=== PATIENT | female | born 1995 | race Caucasian/White ===

== ENCOUNTER 2024-10-15 19:09 | Emergency (ER) | payer SELFPAY ==
[2024-10-15 20:02] VITALS: RESP 16; TEMP 97.9
[2024-10-15] MEDS ORDERED: Erythromycin 1 GM ONE (21:54)
[2024-10-15] MEDS: Erythromycin 1 GM OP STA (21:55)
--- NOTE | 2024-10-15 21:55 | ERPHSYRPT ---
- History of Present Illness Time Seen by Provider: 10/15/24 21:00 Source: patient Exam Limitations: no limitations Patient Subjective Stated Complaint: both eyes red and swollen which has been going on since jul, but tonight the left eye started draining Triage Nursing Assessment: Pt ambulated into Er without diff. Pt c/o bilat eye itching and burning and swelling. This has been going on since Jul, 2024. Pt's bilat eyelids are red, swollen and the left eye has dried yellow drainage noted to eyelid. Redness also noted underneath bilat eyes. Pt came in due to the left eye draining this evening. Pt has been to her eye dr, to urgent care and 2 different quick clinics. Pt is scheduled to see an biomedical field service engineer in 2 weeks. Physician History: Patient is a 29-year-old female presents to our ED for evaluation of of recurrent intermittent periorbital itching and burning sensation. Symptoms have been intermittent since July 2024. Patient states her eyelids and the periorbital soft tissues become swollen irritated. She occasionally experiences matting of her left eye. No involvement of the globe. No redness no blurred vision no eye pain. Patient's symptom is around the involved eye. Patient has seen several providers including an eye doctor her family doctor and an outpatient quick care clinic. Patient has been treated with intramuscular steroids and oral antibiotics. Symptoms improved transiently however recur. Patient is here today because of matting of her left eye mostly the lateral aspect. Patient is currently scheduled to see an biomedical field service engineer in 2 weeks. Symptoms are mild to moderate in intensity. No specific worsening or improving factors. Patient has discontinued her make-up. She no longer wears contacts. Patient keeps her face clean with mild soap. Patient is otherwise asymptomatic. She has no other manifestations local or systemic other than her current periorbital itching and burning sensation. Portions of this note were created with voice recognition technology. There may be grammatical, spelling, punctuation or sound alike errors Timing/Duration: today Severity: moderate Modifying Factors: Improves With: nothing Associated Symptoms: denies symptoms Allergies/Adverse Reactions: fentanyl Adverse Reaction (Intermediate, Verified 10/15/24 20:12) Hives Home Medications: Ascorbic Acid/Ascorbate Sodium [Vitamin C 500 mg Tablet Chew] 1 tab PO DAILY 10/15/24 [History] Ferrous Sulfate [Iron] 1 tab PO DAILY 10/15/24 [History] Hx Tetanus, Diphtheria Vaccination/Date Given: Yes Hx Influenza Vaccination/Date Given: Yes Hx Pneumococcal Vaccination/Date Given: No Travel Risk - International Travel Have you traveled outside of the country in past 3 weeks: No - Emerging Infectious Disease Are you exhibiting symptoms associated with any current EIDs: No - Review of Systems Constitutional: No Symptoms, No Fever, No Chills Eyes: No Symptoms Ears, Nose, & Throat: No Symptoms Respiratory: No Symptoms, No Cough, No Dyspnea Cardiac: No Symptoms, No Chest Pain, No Edema, No Syncope Abdominal/Gastrointestinal: No Symptoms, No Abdominal Pain, No Nausea, No V omiting, No Diarrhea Genitourinary Symptoms: No Symptoms, No Dysuria Musculoskeletal: No Symptoms, No Back Pain, No Neck Pain Skin: No Symptoms, No Rash Neurological: No Symptoms, No Dizziness, No Focal Weakness, No Sensory Changes Psychological: No Symptoms Endocrine: No Symptoms Hematologic/Lymphatic: No Symptoms Immunological/Allergic: No Symptoms All Other Systems: Reviewed and Negative - Past Medical History Pertinent Past Medical History: Yes Psycho-Social History: Anxiety, Bipolar, Depression Other Medical History: anemia - Past Surgical History Past Surgical History: Yes Gastrointestinal: Appendectomy Female Surgical History: Tubal Ligation Other Surgical History: cyst removal from thumb - Female History Hx Last Menstrual Period: . Hx Now: No - Social History Smoking Status: Never smoker Exposure to second hand smoke: No Drug Use: none - Social Determinants of Health Will the patient participate in the screening: Yes Do you worry about a steady place to live?: No Do you have any problems with any of the following?: No known problems In the past 12 months,have you had to go without utilities?: No Transportation Issues: No Has anyone in your support network made you feel unsafe?: No Have you or anyone in your house had to go without enough: No - Nursing Vital Signs Nursing Vital Signs: Initial Vital Signs Temperature 97.9 F 10/15/24 20:01 Pulse Rate 82 10/15/24 20:01 Respiratory Rate 16 10/15/24 20:01 Blood Pressure 123/87 10/15/24 20:01 O2 Sat by Pulse Oximetry 98 10/15/24 20:01 Pain Scale Pain Intensity 0 - Physical Exam General Appearance: no apparent distress, alert Eye Exam: PERRL/EOMI, eyes nml inspection Ears, Nose, Throat Exam: normal ENT inspection, pharynx normal, moist mucous membranes, other (Bilateral periorbital redness and irritation/dermatitis. Mild bilateral blepharitis no conjunctivitis. No chemosis left lateral periorbital area is developing a superimposed skin infection/impetigo. No orbital involvement.) Neck Exam: normal inspection, non-tender, supple, full range of motion Respiratory Exam: normal breath sounds, lungs clear, airway intact, No respiratory distress Cardiovascular Exam: regular rate/rhythm, normal heart sounds, normal peripheral pulses Gastrointestinal/Abdomen Exam: soft, normal bowel sounds, No tenderness, No mass Back Exam: normal inspection, normal range of motion, No CVA tenderness, No vertebral tenderness Extremity Exam: normal inspection, normal range of motion, pelvis stable Neurologic Exam: alert, oriented x 3, cooperative, normal mood/affect, nml cerebellar function, nml station & gait, sensation nml, No motor deficits Skin Exam: normal color, warm, dry, No rash Lymphatic Exam: No adenopathy SpO2: 98 - Course Nursing assessment & vital signs reviewed: Yes Ordered Tests: Medication Summary Discontinued Medications Generic Name Dose Route Start Last Admin Trade Name Tony PRN Reason Stop Dose Admin Erythromycin 1 gm 10/15/24 21:49 10/15/24 21:55 Erythromycin Base 1 Gm Tube Eye Ointment OP 10/15/24 21:50 1 gm STAT STA Administration Erythromycin Confirm 10/15/24 21:54 Erythromycin Base 1 Gm Tube Eye Ointment Administered 10/15/24 21:55 Dose 1 gm .ROUTE .STK-MED ONE - Progress Progress: improved Progress Note: Patient usually experiences symptomatic relief with IM steroid. We discussed IM steroid injection here today however patient declined. Patient agreed to the topical erythromycin ophthalmic ointment for the left lateral canthus matting and slight impetigo. Patient advised to keep the area clean free of chemicals mild soap warm compress. Patient referred to rheumatology. Patient agrees to follow-up as planned. She voices no other complaints or concerns at this time. Portions of this note were created with voice recognition technology. There may be grammatical, spelling, punctuation or sound alike errors Complexity of problem addressed is moderate acute complicated no critical care time complex of data reviewed and analyzed is none. Diagnosis made based on history and physical exam. Risk of complication and or risk of morbidity/mortality of patient management is moderate. Patient received erythromycin ophthalmic for home. Vital stable. Time spent to discharge patient is approximately 20 minutes. Plan of care established for shared decision making. No social determinants of health present to impede follow-up. Portions of this note were created with voice recognition technology. There may be grammatical, spelling, punctuation or sound alike errors 10/15/24 22:05 Counseled pt/family regarding: diagnosis, need for follow-up - Departure Departure Disposition: Home Clinical Impression: Periorbital dermatitis, Impetigo, Blepharitis Condition: Stable Critical Care Time: No Referrals: ADAM ZALDIVAR FNP [Primary Care Provider] - Follow up/PCP as directed Additional Instructions: Please follow-up with a cashier wrapper of your choice. However there are local cashier wrapper (Ignacia Neely) that may be of benefit as well. Dr. Oralia Julien and Dr. Greyson Purcell both at [phone] Discharge/Care Plan ADOLFO MARAVILLA was seen on 10/15/24 in the Emergency Room. The patient was counseled regarding Diagnosis,Lab results, Imaging studies, need for follow up and when to return to the Emergency Room. Prescriptions given: Discharge Note I have spoken with the patient and/or caregivers. I have explained the patient's condition, diagnosis and treatment plan based on the information available to me at this time. I have answered the patient's and/or caregiver's questions and addressed any concerns. The patient and/or caregivers have as good understanding of the patient's diagnosis, condition and treatment plan as can be expected at this point. The vital signs have been stable. The patient's condition is stable and appropriate for discharge from the emergency department. The patient will pursue further outpatient evaluation with the primary care physician or other designated or consulting physician as outlined in the discharge instructions. The patient and/or caregivers are agreeable to this plan of care and follow-up instructions have been explained in detail. The patient and/or caregivers have received these instruction. The patient/and or caregivers are aware that any significant change in condition or worsening of symptoms should prompt an immediate return to this or the closest emergency department or call 911.
[2024-10-15 22:04] VITALS: BP 100/73; PULSE 72
[2024-10-15 22:05] VITALS: O2SAT 98
== END 2024-10-15 22:05 | disposition home or self-care (01) ==
LOC: ED 19:09
DX: L01.00 Impetigo, unspecified (principal); H01.006 Unspecified blepharitis left eye, unspecified eyelid; H01.003 Unspecified blepharitis right eye, unspecified eyelid; L71.0 Perioral dermatitis
CPT/HCPCS: 99282; A9270-GY